=== PATIENT | male | born 1985 | race American Indian/Alaskan Native ===

== ENCOUNTER 2018-01-09 14:42 | Emergency (ER) | payer OTHER ==
[2018-01-09 14:48] VITALS: RESP 18
[2018-01-09 15:58] LABS: BASO % 0.8 % (0.0-2.0); EOS % 0.2 % (0.0-4.0); HEMOGLOBIN 13.5 g/dL (12.0-18.0); LYMPH # 1.8 K/uL (1.0-4.3); LYMPH % 28.8 % (20.0-40.0); MEAN CELL VOLUME 92.8 fl (80.0-94.0); MEAN CORPUSCULAR HEMOGLOBIN 30.8 pg (27.0-31.0); MEAN CORPUSCULAR HGB CONC 33.2 g/dL (33.0-37.0); MEAN PLATELET VOLUME 10.4 fl (7.2-11.7); MONO % 15.9 % (0.0-10.0); NEUT # 3.4 K/uL (1.8-7.0); NEUT % 54.3 % (50.0-75.0); NRBC % 0.2 % (0.0-0.0); RBC 4.37 Mil/uL (4.40-5.90); RED CELL DISTRIBUTION WIDTH 13.2 % (11.5-14.5); WHITE BLOOD COUNT 6.3 K/uL (4.8-10.8)
[2018-01-09 16:04] LABS: BLOOD UREA NITROGEN 14 mg/dl (9-20); CALCIUM 9.9 mg/dL (8.4-10.2); GFR NON-AFRICAN AMERICAN 58
--- NOTE | 2018-01-09 19:15 | ED PDOC ---
HPI: Psych/Substance Abuse Time Seen by Provider: 01/09/18 15:00 Chief Complaint (Nursing): Anxiety Past Medical History Vital Signs: Last Vital Signs Temp 100.2 F H 01/09/18 14:45 Pulse 143 H 01/09/18 14:45 Resp 18 01/09/18 14:45 BP 136/77 01/09/18 14:45 Pulse Ox 98 01/09/18 14:45 - Medical History PMH: Anxiety, Asthma, Depression - Family History Family History: States: Unknown Family Hx - Allergies Allergies/Adverse Reactions: Allergies Allergy/AdvReac Type Severity Reaction Status Date / Time No Known Allergies Allergy Verified 01/09/18 14:44 Review of Systems Constitutional: Negative for: Fever, Chills, Sweats Respiratory: Negative for: Cough, Shortness of Breath Gastrointestinal: Negative for: Nausea, Vomiting Neurological: Negative for: Weakness, Numbness, Incoordination Psych: Positive for: Anxiety Physical Exam - Physical Exam Appears: Positive for: Uncomfortable (anxious appearing) Skin: Positive for: Normal Color, Warm, Dry Eye Exam: Positive for: Normal appearance Neck: Positive for: Normal Cardiovascular/Chest: Positive for: Regular Rate, Rhythm Respiratory: Positive for: Normal Breath Sounds Pulses-Radial (L): 2+ Pulses-Radial (R): 2+ Gastrointestinal/Abdominal: Positive for: Normal Exam, Bowel Sounds, Soft. Negative for: Tenderness - Laboratory Results Result Diagrams: 01/09/18 15:45 01/09/18 15:45 - ECG O2 Sat by Pulse Oximetry: 98 Medical Decision Making Medical Decision Making: HPI Pt BIBEMS after being found acting altered on the street. PT states he feels anxious and has a history of anxiety. Pt denies taking any subtances or drugs. Pt does not provide other information but denies pain, SOB, CP, wheeze. No PMD Denies FHX 1920pm MDM: Pt presents anxious appearing. In no cardiopulmonary distress. Workup for anxiety vs drugs. Pt to get home dose of Klonipin. Pt with normal labs. Seen and evaluated by psychiatry. Dr. Morris states pt is safe for discharge with a diagnosis of anxiety. Pt advised to continue with home medications and follow up with psychiatry. 20:25 Informed by RN that discharge vitals showed the pt to be tachycardic to 130s. Reassessed pt and spoke with pt who states he took a pill from his friend that was supposedly Xanex but may have been something else. Pt agrees to IV fluids and to given urine sample. Spoke with pt's mother, Cassie Baird ([phone]) who states she is health care proxy. She states pt is not safe for discharge alone but he is safe to be discharged with his sister who is currently bedside ( Clementina). Will given pt another dose of Klonipin as the initial dose was lower than his home medications (per his mother). Pt to be signed out to Dr. Cast for final disposition home. Disposition - Clinical Impression Clinical Impression: Anxiety - Patient ED Disposition Is Patient to be Admitted: Transfer of Care - Disposition Disposition: Transfer of Care Disposition Time: 20:27 (Dr. Cast) Condition: IMPROVED Additional Instructions: Follow up with psychiatrist and primary medical doctor. Do not consume drugs or alcohol. Forms: [facility] (Macedonian) Print Language: CZECH
[2018-01-09 20:10] VITALS: TEMP 99.3
[2018-01-09] MEDS ORDERED: Sodium Chloride 0.9% 1,000 ML IV STA ×2 (20:27)
[2018-01-09 23:15] VITALS: BP 100/51; PULSE 116; O2SAT 100
--- NOTE | 2018-01-10 04:34 | ED PDOC ---
- Laboratory Results Result Diagrams: 01/09/18 15:45 01/09/18 15:45 - ECG O2 Sat by Pulse Oximetry: 100 Pulse Ox Interpretation: Normal Medical Decision Making Medical Decision Makin Patient was endorsed to me by Dr. Albright pending re-eval [id number] Patient's HR decreased to 115 after 1st liter, patient and family are anxious to be discharged prior to completion of 2nd liter. Advised patient and family to aggressively hydrate and followup with PMD. Disposition - Clinical Impression Clinical Impression: Anxiety - POA Present On Arrival: None - Disposition Disposition: Routine/Home Disposition Time: 22:00 Condition: IMPROVED Additional Instructions: Follow up with psychiatrist and primary medical doctor. Do not consume drugs or alcohol. Forms: [employer] (Bur[place]ian) Print Language: MALAGASY
--- NOTE | 2018-01-10 09:25 | CARD ---
APPROVED REPORT Date of service: 01/09/2018 EKG Measurement Heart [id number] MI [id number] <Conclusion> Sinus tachycardia Otherwise normal ECG
== END 2018-01-09 23:23 | disposition home or self-care (01) ==
LOC: H.ER 14:42
DX: F41.9 Anxiety disorder, unspecified (principal)
CPT/HCPCS: 80048; 80320; 84484; 85025; 93005; 96360; 96361; 99283; J7030